=== PATIENT | male | born 1975 | race Hispanic/Latino ===

== ENCOUNTER 2019-07-21 11:05 | Outpatient (CLI) | payer BC ==
--- NOTE | 2019-07-21 11:30 | RAD ---
Exam:3 views left shoulder HISTORY: Anterior shoulder pain. Decreased range of motion x6 months COMPARISON: None FINDINGS: Moderate degenerative change at acromioclavicular joint space. Glenohumeral joint space is preserved. No fracture or dislocation. Visualized left ribs are unremarka ble IMPRESSION: 1. No fracture dislocation with respect of the glenohumeral joint space 2. Moderate change in the acromioclavicular joint space
== END 2019-07-21 11:06 | disposition home or self-care (01) ==
LOC: BICRAD 11:05
PROVIDERS: ATTEND Physician Assistant
DX: M25.512 Pain in left shoulder (principal); M25.812 Other specified joint disorders, left shoulder
CPT/HCPCS: 80053; 80061; 81001; 85025

== ENCOUNTER 2019-08-27 08:12 | Outpatient (CLI) | payer BC ==
--- NOTE | 2019-08-27 09:14 | CT ---
CT ABDOMEN AND PELVIS WITH IV CONTRAST 08/27/2019 CLINICAL INFORMATION: Diverticulitis. Follow-up exam. COMPARISON: 08/14/2019 Technique: Multiple contiguous axial CT images are obtained through the abdomen and pelvis with IV contrast. Cor onal reformatted images are provided. FINDINGS: Lower Chest: Linear scarring is again seen in the region of the lingula and lateral left lung base. L emmett bases are otherwise clear Vessels: The abdominal aorta is normal in caliber. Minimal vascular calcifications are seen in the ri ght iliac arteries. Abdomen: Portal vein:Patent Gallbladder: Within normal limits for CT imaging. Liver: within normal limits. Spleen: within normal limits. Pancreas: within normal limits. Adrenals: within normal limits. Kidneys: within normal limits. Bowel: Again noted is the mural thickening involving the proximal sigmoid colon with multiple colonic diverticuli seen in this region. The pericolonic inflammatory changes have improved but continue to persist. The hypodense collection in the wall of the sigmoid colon has almost completely resolved only a tiny subcentimeter low-density focus now present in this region. This probably represents improving intramural abscess. These findings are again thought to most likely be related to diverticu litis. Underlying neoplastic process could not be entirely excluded and follow-up to complete resolution is recommended. Appendix: Increased in diameter with scattered areas of gas. There is no periappendiceal inflammatory changes s een. This is probably within normal limits for the patient. Peritoneum: No ascites or free air; no fluid collection. Mesentery and Retroperitoneum: No enlarged mesenteric or retroperitoneal lymph nodes. Abdominal Wall: within normal limits. Pelvis: Reproductive Organs: No pelvic masses. Pelvis within normal limits. Bladder: within normal limits. Bones: within normal limits. IMPRESSION: 1. Evidence of improving diverticulitis involving the sigmoid colon, but the mural thickening and per icolonic inflammatory changes do persist. Previously noted intramural fluid collection has significantly decreased in size. No new adjacent fluid collection is seen to suggest an abscess. Foll ow-up to complete resolution is recommended to ensure complete resolution of the bowel wall thickening and to exclude underlying neoplastic process.
[2019-08-27] MEDS ORDERED: Iopamidol 370 76% 100 ML VIAL ONE (14:37)
== END 2019-08-27 08:13 | disposition home or self-care (01) ==
LOC: CT 08:12
PROVIDERS: ATTEND Surgery
DX: K57.32 Diverticulitis of large intestine without perforation or abscess without bleeding (principal); K63.89 Other specified diseases of intestine
CPT/HCPCS: 74177; Q9967

== ENCOUNTER 2019-09-10 08:20 | Outpatient (CLI) | payer BC ==
--- NOTE | 2019-09-10 11:03 | CT ---
CT ABODMEN AND PELVIS WITH IV CONTRAST: Date: 09/10/2019 INDICATION: Follow-up colonic diverticulitis. COMPARISON: Prior CT abdomen and pelvis dated 08/27/2019 and 08/14/2019. FINDINGS: Lung bases are clear. No focal hepatic lesion is evident. The pancreas, adrenal glands, and kidneys are normal appearing. N o free fluid or enlarged lymph nodes are evident. There is a normal retrocecal appendix. There is persistent wall thickening involving the proximal sigmoid colon with scattered colonic diver ticulosis. There is mild pericolonic inflammatory stranding. The degree of wall thickening and inflam matory stranding appears relatively stable to the comparison dated 08/27/2019. No drainable fluid col lection is evident. The bladder, rectum, and perirectal soft tissues are normal appearing. No definit e acute osseous abnormality is evident. IMPRESSION: Persistent wall thickening and pericolonic inflammatory stranding of proximal sigmoid colon may refle ct residual colonic diverticulitis. Underlying mass is not entirely excluded. Would recommend conside ration for colonoscopy. Would recommend correlation with clinical examination. POS: [facility]
[2019-09-10] MEDS ORDERED: Iopamidol-370 76% 500 ML 1 ML ONE (13:26)
== END 2019-09-10 08:21 | disposition home or self-care (01) ==
LOC: BICCT 08:20
PROVIDERS: ATTEND Surgery
DX: K57.92 Diverticulitis of intestine, part unspecified, without perforation or abscess without bleeding (principal)
CPT/HCPCS: 74177; Q9967

== ENCOUNTER 2021-01-17 12:05 | Outpatient (CLI) | payer BC ==
[~2021-01-17 12:05] MED LIST: Iopamidol 370 76% 100 ML VIAL ONE; Iopamidol 370 76% 50 ML VIAL FS ONE
== END 2021-01-17 12:06 | disposition home or self-care (01) ==
LOC: CT 12:05
PROVIDERS: ATTEND Nurse Practitioner Family
DX: K57.32 Diverticulitis of large intestine without perforation or abscess without bleeding (principal); K63.89 Other specified diseases of intestine
CPT/HCPCS: 74177; Q9967

== ENCOUNTER 2023-08-09 18:47 | Emergency (ER) | payer BC ==
[2023-08-09] MEDS ORDERED: Aspirin Chewable 81 MG TAB ONE (20:10)
[2023-08-09 20:11] LABS: #Basophils 0.1 thou/uL (0.0-0.2); #Eosinphils 0.1 thou/uL (0.0-0.7); #Monocytes 0.8 thou/uL (0.11-0.59); #Neutrophils 5.8 thou/uL (1.40-6.50); %Basophils 0.6 % (0.0-1.0); %Lymphocytes 23.5 % (21.0-51.0); %Monocytes 8.5 % (0.0-10.0); %Neutrophils 65.8 % (42.0-75.0); Hematocrit 46.3 % (42.0-52.0); Hemoglobin 15.9 g/dL (14.0-18.0); Mean Corpuscular HGB CONC 34.3 g/dL (32.0-36.0); Mean Corpuscular Hemoglobin 30.6 pg (27.0-31.0); Mean Corpuscular Volume 89.2 fl (78.0-98.0); Platelet Count 328 10x3/uL (130-400); RBC Distribution Width 12.6 % (11.5-14.5); Red Blood Cell (RBC) Count 5.19 mill/uL (4.70-6.10); White Blood Cell (WBC) Count 8.9 10x3/uL (4.8-10.8)
[2023-08-09] MEDS ORDERED: Aspirin 325 MG TAB ONE (20:14)
[2023-08-09 20:35] LABS: ALT (SGPT) 45 U/L (8-55); AST (SGOT) 24 U/L (5-34); Albumin 4.6 g/dL (3.5-5.0); Alkaline Phosphatase 68 U/L (40-110); Anion Gap 14 mmol/L (10-20); BUN (Urea Nitrogen) 9 mg/dL (8.9-20.6); Bilirubin, Total 0.4 mg/dL (0.2-1.2); Calc. Creatinine Clearance 0 mL/min (70-130); Carbon Dioxide 28 mmol/L (22-29); Chloride 99 mmol/L (98-107); Estimated GFR 96; Globulin 4.1 g/dL (2.4-3.5); Glucose 121 mg/dL (70-105); Lipase 29 U/L (8-78); Magnesium 2.4 mg/dL (1.6-2.6); Potassium 4.5 mmol/L (3.5-5.1); Protein, Total 8.7 g/dL (6.0-8.3); Sodium 136 mmol/L (136-145)
[2023-08-09 20:39] LABS: Troponin I Less than 0.010 ng/mL (< 0.028)
[2023-08-09 21:18] LABS: SARS-CoV-2 NAA Rapid Test Not Detected (NotDetected)
== END 2023-08-09 21:54 | disposition home or self-care (01) ==
LOC: ERS 18:47
DX: J18.1 Lobar pneumonia, unspecified organism (principal); F17.210 Nicotine dependence, cigarettes, uncomplicated
CPT/HCPCS: 36415; 71045; 80053; 83690; 83735; 84484; 85025; 93005

== ENCOUNTER 2024-03-29 09:59 | Emergency (ER) | payer BC ==
[2024-03-29] MEDS ORDERED: Ketorolac Tromethamine 30 MG (1 mL) VIAL ONE (11:04)
[2024-03-29 11:39] LABS: #Basophils 0.04 10x3/uL (0.0-0.2); #Eosinphils Less than 0.03 10x3/uL (0.0-0.7); %Basophils 0.3 % (0.0-1.0); %Eosinophils 0.1 % (0.0-10.0); %Lymphocytes 9.9 % (21.0-51.0); %Monocytes 10.1 % (0.0-10.0); %Neutrophils 79.1 % (42.0-75.0); Hematocrit 43.5 % (42.0-52.0); Mean Corpuscular HGB CONC 34.5 g/dL (32.0-36.0); Mean Corpuscular Hemoglobin 29.7 pg (27.0-31.0); Mean Corpuscular Volume 86.1 fL (78.0-98.0); Mean Platelet Volume 9.3 fL (7.4-10.4); Platelet Count 281 10x3/uL (130-400); RBC Distribution Width 12.3 % (11.5-14.5); Red Blood Cell (RBC) Count 5.05 mill/uL (4.70-6.10)
[2024-03-29] MEDS ORDERED: Iopamidol-370 76% 500 ML MDV (1 ML CHARGE) ONE (12:00)
[2024-03-29 12:01] LABS: ALT (SGPT) 39 U/L (8-55); AST (SGOT) 14 U/L (5-34); Albumin 3.7 g/dL (3.5-5.0); Alkaline Phosphatase 69 U/L (40-110); Anion Gap 13 mmol/L (10-20); BUN (Urea Nitrogen) 8 mg/dL (8.9-20.6); Bilirubin, Total 1.1 mg/dL (0.2-1.2); Calc. Creatinine Clearance 0 mL/min (70-130); Calcium 9.7 mg/dL (7.8-10.44); Carbon Dioxide 26 mmol/L (22-29); Chloride 97 mmol/L (98-107); Estimated GFR 100; Glucose 144 mg/dL (70-105); Potassium 4.3 mmol/L (3.5-5.1); Protein, Total 8.7 g/dL (6.0-8.3); Sodium 132 mmol/L (136-145)
== END 2024-03-29 13:37 | disposition home or self-care (01) ==
LOC: ERS 09:59
DX: K61.1 Rectal abscess (principal); F17.210 Nicotine dependence, cigarettes, uncomplicated
CPT/HCPCS: 10060; 74177; 80053; 83605; 85025; 96374; J1885; Q9967